=== PATIENT | female | born 1990 | race Caucasian/White ===

== ENCOUNTER 2020-12-08 19:08 | Observation (INO) ==
[2020-12-08] MEDS ORDERED: Naloxone 0.4 MG/ML INJ IVP PRN (21:25)
[2020-12-08] MEDS ORDERED: Melatonin 3 MG TABLET PO PRN (21:25)
[2020-12-08] MEDS ORDERED: Ondansetron 4 MG/2 ML VIAL IVP PRN (21:25)
[2020-12-08 21:30] LABS: Adenovirus Not Detected (Not Detect); Bordetella Pertussis Not Detected (Not Detect); Chlamydophila pneumoniae Not Detected (Not Detect); Coronavirus 229E Not Detected (Not Detect); Coronavirus HKU1 Not Detected (Not Detect); Coronavirus NL63 Not Detected (Not Detect); Coronavirus OC43 Not Detected (Not Detect); Human Metapneumovirus Not Detected (Not Detect); Human Rhinovirus/Enterovirus DETECTED (Not Detect); Influenza A Subtype 2009 H1 Not Detected (Not Detect); Influenza B Not Detected (Not Detect); Mycoplasma pneumoniae Not Detected (Not Detect); Parainfluenza Virus 1 Not Detected (Not Detect); Parainfluenza Virus 2 Not Detected (Not Detect); Parainfluenza Virus 3 Not Detected (Not Detect); Parainfluenza Virus 4 Not Detected (Not Detect); Respiratory Syncytial Virus Not Detected (Not Detect); SARS-CoV-2 Not Detected (Not Detect)
[2020-12-09 01:53] LABS: Basophils % 0.4 %; Eosinophils # 0.2 K/mcL (0.0-0.6); Eosinophils % 1.7 %; Hematocrit 45.1 % (35.3-44.9); Hemoglobin 15.4 g/dL (11.5-15.4); Immature Granulocytes % 0.3 % (0-4); Lymphocytes # 2.7 K/mcL (0.6-4.6); Lymphocytes % 23.9 %; Mean Corpuscular HGB Conc 34.1 g/dL (31.6-35.5); Mean Corpuscular Hemoglobin 29.3 pg (28.0-33.3); Mean Corpuscular Volume 85.9 fL (83.0-100.0); Mean Platelet Volume 12.4 fL (9.4-12.4); Monocytes # 0.9 K/mcL (0.0-1.3); Monocytes % 8.4 %; Neutrophils # 7.3 K/mcL (1.6-8.9); Platelet Count 248 K/mcL (140-400); Red Blood Count 5.25 M/mcL (3.82-4.97); Red Cell Distribution Width 14.2 % (11.5-14.5); Segmented Neutrophils % 65.3 %; White Blood Count 11.1 K/mcL (4.3-11.1)
[2020-12-09 02:13] LABS: Alanine Aminotransferase 27 Units/L (7-52); Albumin/Globulin Ratio 1.4 (1.1-2.2); Alkaline Phosphatase 107 Units/L (34-104); Aspartate Amino Transferase 21 Units/L (13-39); BUN/Creatinine Ratio 14 (6-26); Bilirubin,Total 0.5 mg/dL (0.3-1.0); Blood Urea Nitrogen 10 mg/dL (6-20); Calcium 9.1 mg/dL (8.6-10.3); Carbon Dioxide 24 mEq/L (23-29); Chloride 105 mEq/L (98-107); Globulin 2.8 g/dL (2.4-3.5); Glucose 95 mg/dL (70-105); Magnesium 2.1 mg/dL (1.6-2.6); Osmolality,Calculated 287 (280-300); Potassium 3.5 mEq/L (3.5-5.1); Sodium 139 mEq/L (136-145); Total Protein 6.8 g/dL (6.4-8.9); eGFR For African Americans > 60 (> 60); eGFR For Non-African Americans > 60 (> 60)
[2020-12-09] MEDS ORDERED: *HR* Enoxaparin 40 MG/0.4 ML SYRINGE SQ SCH (06:00)
[2020-12-09] MEDS ORDERED: Nicotine 21 MG PATCH.TD24 TD SCH (09:15)
[2020-12-09 10:26] LABS: Amphetamine Screen,Urine Positive ng/mL (Cutoff=1000); Barbiturate Screen,Urine Negative ng/mL (Cutoff=200); Benzodiazepines Screen,Urine Negative ng/mL (Cutoff=200); Cannabinoid Screen,Urine Negative ng/mL (Cutoff = 50); Cocaine Screen,Urine Negative ng/mL (Cutoff= 300); Opiate Screen,Urine Negative ng/mL (Cutoff=300); Phencyclidine Screen,Urine Negative ng/mL (Cutoff=25)
[2020-12-09 15:33] VITALS: BP 135/92
[2020-12-09] MEDS ORDERED: MOM Conc 10 ML UD.LIQ PO PRN (17:48)
[2020-12-09] MEDS ORDERED: Nicotine 2 MG GUM BC PRN (17:48)
[2020-12-09] MEDS ORDERED: Acetaminophen 325 MG TABLET PO PRN (17:48)
[2020-12-09] MEDS ORDERED: *HR* LORazepam 2 MG/ML VIAL IM PRN (17:48)
[2020-12-09] MEDS ORDERED: Mag Hydrox/Al Hydrox/Simeth 30 ML UDC PO PRN (17:48)
[2020-12-09] MEDS ORDERED: hydrOXYzine pamoate 25 MG CAPSULE PO PRN (17:48)
[2020-12-09] MEDS ORDERED: haloperidoL 5 MG TABLET PO PRN (17:48)
[2020-12-09] MEDS ORDERED: *HR* LORazepam 1 MG TABLET PO PRN (17:48)
[2020-12-09] MEDS ORDERED: Haloperidol Lactate 5 MG/ML VIAL IM PRN (17:48)
[2020-12-09] MEDS ORDERED: QUEtiapine Fumarate 25 MG TABLET PO PRN (17:48)
== END 2020-12-09 17:38 ==
LOC: 3BNU 19:08 → EMEROOARM 19:08 → SUATTDRO 21:55 → 3BNU 22:38
PROVIDERS: ADMIT Internal Medicine; ATTEND Internal Medicine

== ENCOUNTER 2020-12-09 17:22 | Inpatient (IN) ==
[2020-12-09] MEDS ORDERED: *HR* LORazepam 1 MG TABLET PO PRN (18:14)
[2020-12-09] MEDS ORDERED: *HR* LORazepam 2 MG/ML VIAL IM PRN (18:14)
[2020-12-09] MEDS ORDERED: Mag Hydrox/Al Hydrox/Simeth 30 ML UDC PO PRN (18:14)
[2020-12-09] MEDS ORDERED: haloperidoL 5 MG TABLET PO PRN (18:14)
[2020-12-09] MEDS ORDERED: MOM Conc 10 ML UD.LIQ PO PRN (18:14)
[2020-12-09] MEDS ORDERED: Haloperidol Lactate 5 MG/ML VIAL IM PRN (18:14)
[2020-12-10] MEDS: Nicotine 2 MG GUM BC PRN ×7 (00:03→20:28)
[2020-12-10] MEDS: QUEtiapine Fumarate 25 MG TABLET PO PRN ×2 (00:03→20:28)
[2020-12-10] MEDS ORDERED: Nicotine 21 MG PATCH.TD24 TD SCH (09:00)
[2020-12-10] MEDS: hydrOXYzine pamoate 25 MG CAPSULE PO PRN ×2 (10:31→20:28)
[2020-12-10] MEDS: Ibuprofen 600 MG TABLET PO SCH ×3 (12:43→20:27)
[2020-12-11] MEDS: QUEtiapine Fumarate 25 MG TABLET PO PRN ×2 (02:24→21:48)
[2020-12-11] MEDS: hydrOXYzine pamoate 25 MG CAPSULE PO PRN ×3 (08:37→21:48)
[2020-12-11] MEDS: Ibuprofen 600 MG TABLET PO SCH ×3 (08:37→21:48)
[2020-12-11] MEDS: Nicotine 2 MG GUM BC PRN ×3 (09:18→17:45)
[2020-12-12] MEDS: QUEtiapine Fumarate 25 MG TABLET PO PRN (01:16)
[2020-12-12 08:47] VITALS: BP 119/67
[2020-12-12] MEDS: Ibuprofen 600 MG TABLET PO SCH (09:55)
[2020-12-12] MEDS: Nicotine 2 MG GUM BC PRN (09:58)
== END 2020-12-12 11:55 | disposition other institution (70) | DRG 750 ==
LOC: 1ANU 17:22
PROVIDERS: ADMIT Psychiatry & Neurology Forensic Psychiatry; ATTEND Psychiatry & Neurology Forensic Psychiatry

== ENCOUNTER 2020-12-22 02:35 | Inpatient (IN) ==
[2020-12-22] MEDS ORDERED: haloperidoL 5 MG TABLET PO PRN (05:05)
[2020-12-22] MEDS ORDERED: Haloperidol Lactate 5 MG/ML VIAL IM PRN (05:05)
[2020-12-22] MEDS: hydrOXYzine pamoate 25 MG CAPSULE PO PRN ×2 (06:17→18:02)
[2020-12-22] MEDS ORDERED: MOM Conc 10 ML UD.LIQ PO PRN (09:10)
[2020-12-22] MEDS ORDERED: Mag Hydrox/Al Hydrox/Simeth 30 ML UDC PO PRN (09:10)
[2020-12-22] MEDS: Nicotine 2 MG GUM BC PRN ×2 (11:37→16:33)
[2020-12-22] MEDS: Acetaminophen 325 MG TABLET PO PRN (17:23)
[2020-12-23] MEDS: QUEtiapine Fumarate 25 MG TABLET PO PRN ×2 (01:44→21:08)
[2020-12-23] MEDS: Nicotine 2 MG GUM BC PRN ×4 (07:40→18:37)
[2020-12-23] MEDS: hydrOXYzine pamoate 25 MG CAPSULE PO PRN ×3 (09:11→21:08)
[2020-12-23] MEDS ORDERED: *HR* LORazepam 2 MG/ML VIAL IM PRN (09:49)
[2020-12-23] MEDS: cloNIDine HCL 0.1 MG TABLET PO PRN (10:47)
[2020-12-24] MEDS: hydrOXYzine pamoate 25 MG CAPSULE PO PRN ×3 (04:18→19:59)
[2020-12-24] MEDS: Nicotine 2 MG GUM BC PRN ×4 (07:17→20:53)
[2020-12-24] MEDS: cloNIDine HCL 0.1 MG TABLET PO PRN ×2 (08:55→19:58)
[2020-12-24] MEDS: Acetaminophen 325 MG TABLET PO PRN (19:58)
[2020-12-24] MEDS: QUEtiapine Fumarate 25 MG TABLET PO PRN (19:59)
[2020-12-25] MEDS: Nicotine 2 MG GUM BC PRN ×5 (04:01→15:47)
[2020-12-25] MEDS: cloNIDine HCL 0.1 MG TABLET PO PRN ×2 (08:56→17:47)
[2020-12-25] MEDS: hydrOXYzine pamoate 25 MG CAPSULE PO PRN (12:58)
[2020-12-25] MEDS: Acetaminophen 325 MG TABLET PO PRN ×2 (15:47→20:55)
[2020-12-25] MEDS: QUEtiapine Fumarate 25 MG TABLET PO PRN (20:44)
[2020-12-25] MEDS ORDERED: OLANZapine 5 MG TAB.RAPDIS PO SCH (21:00)
[2020-12-26] MEDS: Nicotine 2 MG GUM BC PRN ×5 (02:28→17:56)
[2020-12-26] MEDS: Acetaminophen 325 MG TABLET PO PRN ×4 (02:28→19:43)
[2020-12-26] MEDS: hydrOXYzine pamoate 25 MG CAPSULE PO PRN ×2 (03:55→19:43)
[2020-12-26] MEDS: cloNIDine HCL 0.1 MG TABLET PO PRN (04:24)
[2020-12-26] MEDS: Ibuprofen 400 MG TABLET PO PRN ×2 (13:26→20:40)
[2020-12-26] MEDS: QUEtiapine Fumarate 25 MG TABLET PO PRN (20:38)
[2020-12-26] MEDS ORDERED: OLANZapine 10 MG TAB.RAPDIS PO SCH (21:00)
[2020-12-27] MEDS: Acetaminophen 325 MG TABLET PO PRN ×2 (02:48→08:58)
[2020-12-27] MEDS: Nicotine 2 MG GUM BC PRN ×5 (03:11→17:04)
[2020-12-27 09:36] VITALS: BP 125/87
[2020-12-27] MEDS: hydrOXYzine pamoate 25 MG CAPSULE PO PRN ×2 (12:48→17:03)
[2020-12-27] MEDS: Ibuprofen 400 MG TABLET PO PRN (16:21)
== END 2020-12-27 18:05 | disposition home or self-care (01) | DRG 751 ==
LOC: EMEROOARM 02:35 → 1ANU 04:52
PROVIDERS: ADMIT Psychiatry & Neurology Psychiatry; ATTEND Psychiatry & Neurology Psychiatry

== ENCOUNTER 2021-01-07 22:11 | Inpatient (IN) ==
[2021-01-08 06:12] LABS: Adenovirus Not Detected (Not Detect); Bordetella Pertussis Not Detected (Not Detect); Chlamydophila pneumoniae Not Detected (Not Detect); Coronavirus 229E Not Detected (Not Detect); Coronavirus HKU1 Not Detected (Not Detect); Coronavirus NL63 Not Detected (Not Detect); Coronavirus OC43 Not Detected (Not Detect); Human Metapneumovirus Not Detected (Not Detect); Human Rhinovirus/Enterovirus Not Detected (Not Detect); Influenza A Subtype 2009 H1 Not Detected (Not Detect); Influenza B Not Detected (Not Detect); Mycoplasma pneumoniae Not Detected (Not Detect); Parainfluenza Virus 1 Not Detected (Not Detect); Parainfluenza Virus 2 Not Detected (Not Detect); Parainfluenza Virus 3 Not Detected (Not Detect); Parainfluenza Virus 4 Not Detected (Not Detect); Respiratory Syncytial Virus Not Detected (Not Detect); SARS-CoV-2 Not Detected (Not Detect)
[2021-01-08] MEDS ORDERED: haloperidoL 5 MG TABLET PO PRN (09:38)
[2021-01-08] MEDS ORDERED: *HR* LORazepam 1 MG TABLET PO PRN (09:38)
[2021-01-08] MEDS ORDERED: Mag Hydrox/Al Hydrox/Simeth 30 ML UDC PO PRN (09:38)
[2021-01-08] MEDS ORDERED: Haloperidol Lactate 5 MG/ML VIAL IM PRN (09:38)
[2021-01-08] MEDS ORDERED: MOM Conc 10 ML UD.LIQ PO PRN (09:38)
[2021-01-08] MEDS ORDERED: *HR* LORazepam 2 MG/ML VIAL IM PRN (09:38)
[2021-01-08] MEDS ORDERED: Nicotine 21 MG PATCH.TD24 TD SCH (09:45)
[2021-01-08] MEDS ORDERED: PALIPERIDONE PALMITATE 156 MG/ML IM SCH (12:00)
[2021-01-08] MEDS: Nicotine 2 MG GUM BC PRN ×2 (13:42→17:40)
[2021-01-08] MEDS: QUEtiapine Fumarate 25 MG TABLET PO PRN (20:59)
[2021-01-08] MEDS: hydrOXYzine pamoate 25 MG CAPSULE PO PRN (20:59)
[2021-01-08] MEDS: OLANZapine 5 MG TAB.RAPDIS PO SCH (20:59)
[2021-01-09] MEDS: PARoxetine 20 MG TABLET PO SCH (08:50)
[2021-01-09] MEDS ORDERED: Paliperidone Palmitate 156 MG/ML SYRINGE IM SCH (10:00)
[2021-01-09] MEDS: Nicotine 2 MG GUM BC PRN ×2 (11:39→13:57)
[2021-01-09] MEDS: Acetaminophen 325 MG TABLET PO PRN (12:02)
[2021-01-09] MEDS: OLANZapine 5 MG TAB.RAPDIS PO SCH (20:18)
[2021-01-09] MEDS: hydrOXYzine pamoate 25 MG CAPSULE PO PRN (20:18)
[2021-01-09] MEDS: QUEtiapine Fumarate 25 MG TABLET PO PRN (20:18)
[2021-01-10] MEDS: PARoxetine 20 MG TABLET PO SCH (09:50)
[2021-01-10] MEDS: Nicotine 2 MG GUM BC PRN (09:51)
[2021-01-10] MEDS: hydrOXYzine pamoate 25 MG CAPSULE PO PRN (20:18)
[2021-01-10] MEDS: QUEtiapine Fumarate 25 MG TABLET PO PRN (20:18)
[2021-01-10] MEDS: OLANZapine 5 MG TAB.RAPDIS PO SCH (20:18)
[2021-01-11] MEDS: PARoxetine 20 MG TABLET PO SCH (08:37)
[2021-01-11] MEDS: Acetaminophen 325 MG TABLET PO PRN ×2 (09:20→17:32)
[2021-01-11] MEDS: Nicotine 2 MG GUM BC PRN ×3 (09:37→17:32)
[2021-01-11] MEDS: Ibuprofen 800 MG TABLET PO PRN (14:01)
[2021-01-11] MEDS: hydrOXYzine pamoate 25 MG CAPSULE PO PRN (20:28)
[2021-01-11] MEDS: QUEtiapine Fumarate 25 MG TABLET PO PRN (20:28)
[2021-01-11] MEDS: OLANZapine 10 MG TAB.RAPDIS PO SCH (20:29)
[2021-01-12] MEDS: Nicotine 2 MG GUM BC PRN ×5 (03:00→21:19)
[2021-01-12] MEDS: Acetaminophen 325 MG TABLET PO PRN ×4 (03:01→20:28)
[2021-01-12] MEDS: PARoxetine 20 MG TABLET PO SCH (08:06)
[2021-01-12] MEDS: hydrOXYzine pamoate 25 MG CAPSULE PO PRN ×2 (14:52→20:27)
[2021-01-12] MEDS: Ibuprofen 800 MG TABLET PO PRN (18:41)
[2021-01-12] MEDS: QUEtiapine Fumarate 25 MG TABLET PO PRN (20:27)
[2021-01-12] MEDS: OLANZapine 10 MG TAB.RAPDIS PO SCH (20:28)
[2021-01-13] MEDS: Acetaminophen 325 MG TABLET PO PRN ×4 (02:40→21:03)
[2021-01-13] MEDS: Nicotine 2 MG GUM BC PRN ×3 (02:40→19:50)
[2021-01-13] MEDS: hydrOXYzine pamoate 25 MG CAPSULE PO PRN ×2 (04:27→21:03)
[2021-01-13] MEDS: PARoxetine 20 MG TABLET PO SCH (08:46)
[2021-01-13] MEDS: QUEtiapine Fumarate 25 MG TABLET PO PRN (21:03)
[2021-01-13] MEDS: OLANZapine 10 MG TAB.RAPDIS PO SCH (21:04)
[2021-01-14] MEDS: Nicotine 2 MG GUM BC PRN ×3 (00:36→13:03)
[2021-01-14] MEDS: PARoxetine 20 MG TABLET PO SCH (08:25)
[2021-01-14] MEDS: Acetaminophen 325 MG TABLET PO PRN ×2 (08:25→14:58)
[2021-01-14 09:21] VITALS: BP 136/82
[2021-01-14] MEDS: Ibuprofen 800 MG TABLET PO PRN (13:02)
== END 2021-01-14 15:16 | disposition home or self-care (01) | DRG 817 ==
LOC: EMEROOARM 22:11 → 1ANU 01-08 07:08
PROVIDERS: ADMIT Psychiatry & Neurology Psychiatry; ATTEND Psychiatry & Neurology Psychiatry

== ENCOUNTER 2022-03-17 14:54 | Inpatient (IN) ==
[2022-03-17 15:27] LABS: Bilirubin,Urine Negative (Negative); Blood,Urine Negative (Negative); Clarity,Urine Clear (Clear); Color,Urine Colorless (Yellow); Glucose,Urine (UA) Normal (Normal); Ketones,Urine Negative (Negative); Leukocyte Esterase,Urine Small (Negative); Nitrite,Urine Negative (Negative); PH,Urine 6.5 pH Units (5.0-8.0); Protein,Urine Negative (Neg-Trace); Specific Gravity,Urine < 1.005 (1.010-1.025); Urobilinogen,Urine Normal (Normal); WBC,Urine 0-3 per hpf (0-3)
[2022-03-17] MEDS ORDERED: Pregabalin 50 MG CAPSULE PO ONE ×2 (15:50→21:59)
[2022-03-17 16:36] LABS: Amphetamine Screen,Urine Negative ng/mL (Cutoff=1000); Barbiturate Screen,Urine Negative ng/mL (Cutoff=200); Benzodiazepines Screen,Urine Negative ng/mL (Cutoff=200); Cannabinoid Screen,Urine Negative ng/mL (Cutoff = 50); Cocaine Screen,Urine Negative ng/mL (Cutoff= 300); Opiate Screen,Urine Negative ng/mL (Cutoff=300); Phencyclidine Screen,Urine Negative ng/mL (Cutoff=25)
[2022-03-17] MEDS ORDERED: *HR* LORazepam 2 MG/ML VIAL IM PRN (18:17)
[2022-03-17] MEDS ORDERED: Haloperidol Lactate 5 MG/ML VIAL IM PRN (18:17)
[2022-03-17 19:07] LABS: Influenza A PCR Negative (Negative); Influenza B PCR Negative (Negative); Resp. Syncytial Virus PCR Negative (Negative)
[2022-03-17 19:12] LABS: SARS-CoV-2 by PCR (In House) Negative (Negative)
[2022-03-17] MEDS: hydrOXYzine pamoate 25 MG CAPSULE PO PRN (20:10)
[2022-03-17] MEDS ORDERED: ARIPiprazole 5 MG TABLET PO SCH (22:00)
[2022-03-17] MEDS: Nicotine 2 MG GUM BC PRN (22:11)
[2022-03-18] MEDS: haloperidoL 5 MG TABLET PO PRN ×2 (03:57→15:09)
[2022-03-18] MEDS: *HR* LORazepam 1 MG TABLET PO PRN (03:57)
[2022-03-18] MEDS: hydrOXYzine pamoate 25 MG CAPSULE PO PRN ×3 (08:38→20:33)
[2022-03-18] MEDS: Nicotine 2 MG GUM BC PRN ×3 (08:38→20:15)
[2022-03-18] MEDS ORDERED: Nicotine 14 MG PATCH.TD24 TD SCH (09:00)
[2022-03-18] MEDS ORDERED: Mag Hydrox/Al Hydrox/Simeth 30 ML UDC PO PRN (09:33)
[2022-03-18] MEDS ORDERED: MOM Conc 10 ML UD.LIQ PO PRN (09:33)
[2022-03-18 10:37] LABS: Basophils % 0.4 %; Eosinophils # 0.2 K/mcL (0.0-0.6); Hematocrit 44.3 % (35.3-44.9); Immature Granulocytes % 0.2 % (0-4); Lymphocytes # 1.8 K/mcL (0.6-4.6); Lymphocytes % 21.5 %; Mean Corpuscular HGB Conc 33.9 g/dL (31.6-35.5); Mean Corpuscular Hemoglobin 30.9 pg (28.0-33.3); Mean Corpuscular Volume 91.2 fL (83.0-100.0); Mean Platelet Volume 12.1 fL (9.4-12.4); Monocytes # 0.5 K/mcL (0.0-1.3); Monocytes % 6.2 %; Neutrophils # 5.9 K/mcL (1.6-8.9); Platelet Count 200 K/mcL (140-400); Red Blood Count 4.86 M/mcL (3.82-4.97); Red Cell Distribution Width 13.5 % (11.5-14.5); Segmented Neutrophils % 69.7 %; White Blood Count 8.4 K/mcL (4.3-11.1)
[2022-03-18 11:08] LABS: Alanine Aminotransferase 23 Units/L (7-52); Albumin 4.4 g/dL (3.5-5.7); Albumin/Globulin Ratio 1.6 (1.1-2.2); Alkaline Phosphatase 64 Units/L (34-104); Aspartate Amino Transferase 18 Units/L (13-39); BUN/Creatinine Ratio 13 (6-26); Bilirubin,Total 1.1 mg/dL (0.3-1.0); Blood Urea Nitrogen 9 mg/dL (6-20); Calcium 9.7 mg/dL (8.6-10.3); Carbon Dioxide 27 mEq/L (23-29); Chloride 106 mEq/L (98-107); Chol/HDL Ratio 4.3 (0-4.9); Cholesterol 132 mg/dL (< 200); Globulin 2.8 g/dL (2.4-3.5); Glucose 91 mg/dL (70-105); HDL Cholesterol 31 mg/dL (40-59); LDL Cholesterol,Calculated 81 mg/dL (< 100); Osmolality,Calculated 284 (280-300); Potassium 4.2 mEq/L (3.5-5.1); Sodium 138 mEq/L (136-145); Total Protein 7.2 g/dL (6.4-8.9); Triglycerides 102 mg/dL (< 150)
[2022-03-18 11:15] LABS: Thyroid Stimulating Hormone 0.946 mcIU/mL (0.340-5.600)
[2022-03-18 11:41] LABS: Estimated Average Glucose 97 mg/dl
[2022-03-18] MEDS: Acetaminophen 325 MG TABLET PO PRN (11:44)
[2022-03-18] MEDS: Vitamin B Complex/Vit C/Vit E 1 EACH TABLET PO SCH (11:44)
[2022-03-18] MEDS: QUEtiapine Fumarate 25 MG TABLET PO PRN ×2 (20:33→23:30)
[2022-03-18] MEDS: Pregabalin 50 MG CAPSULE PO SCH (20:33)
[2022-03-18] MEDS ORDERED: ARIPiprazole 5 MG TABLET PO SCH (21:00)
[2022-03-19] MEDS: *HR* LORazepam 1 MG TABLET PO PRN (02:04)
[2022-03-19] MEDS: haloperidoL 5 MG TABLET PO PRN ×2 (02:04→12:35)
[2022-03-19] MEDS: Vitamin B Complex/Vit C/Vit E 1 EACH TABLET PO SCH (08:28)
[2022-03-19] MEDS: Levothyroxine 25 MCG TABLET PO SCH (08:28)
[2022-03-19] MEDS: Pregabalin 50 MG CAPSULE PO SCH ×2 (08:28→20:04)
[2022-03-19] MEDS: Nicotine 2 MG GUM BC PRN ×3 (08:30→20:03)
[2022-03-19] MEDS: hydrOXYzine pamoate 25 MG CAPSULE PO PRN (10:03)
[2022-03-19] MEDS ORDERED: ARIPiprazole 400 MG SUSER.SYR IM SCH (12:00)
[2022-03-19] MEDS: Acetaminophen 325 MG TABLET PO PRN (14:08)
[2022-03-19] MEDS: QUEtiapine Fumarate 25 MG TABLET PO PRN (20:04)
[2022-03-19] MEDS ORDERED: ARIPiprazole 5 MG TABLET PO SCH (21:00)
[2022-03-20] MEDS: Nicotine 2 MG GUM BC PRN ×4 (03:44→20:03)
[2022-03-20] MEDS: Levothyroxine 25 MCG TABLET PO SCH (06:48)
[2022-03-20] MEDS: Pregabalin 50 MG CAPSULE PO SCH ×2 (07:43→20:02)
[2022-03-20] MEDS: Vitamin B Complex/Vit C/Vit E 1 EACH TABLET PO SCH (07:44)
[2022-03-20] MEDS: haloperidoL 5 MG TABLET PO PRN ×2 (07:44→15:12)
[2022-03-20] MEDS: hydrOXYzine pamoate 25 MG CAPSULE PO PRN (07:44)
[2022-03-20] MEDS: RisperiDONE-M 1 MG TAB.RAPDIS PO PRN (11:20)
[2022-03-20] MEDS: Acetaminophen 325 MG TABLET PO PRN (15:54)
[2022-03-20] MEDS: Nitrofurantoin (BID) 100 MG CAPSULE PO SCH (15:54)
[2022-03-20] MEDS ORDERED: ARIPiprazole 5 MG TABLET PO SCH ×2 (21:00)
[2022-03-20] MEDS: ARIPiprazole 10 MG TABLET PO SCH (21:34)
[2022-03-20] MEDS: QUEtiapine Fumarate 25 MG TABLET PO PRN (21:36)
[2022-03-21] MEDS: haloperidoL 5 MG TABLET PO PRN ×3 (02:45→15:25)
[2022-03-21] MEDS: Levothyroxine 25 MCG TABLET PO SCH (06:45)
[2022-03-21] MEDS: Nitrofurantoin (BID) 100 MG CAPSULE PO SCH ×2 (06:45→17:19)
[2022-03-21] MEDS: Nicotine 2 MG GUM BC PRN ×5 (06:45→20:02)
[2022-03-21] MEDS: hydrOXYzine pamoate 25 MG CAPSULE PO PRN ×3 (06:50→14:47)
[2022-03-21] MEDS: Pregabalin 50 MG CAPSULE PO SCH ×2 (09:23→20:12)
[2022-03-21] MEDS: Vitamin B Complex/Vit C/Vit E 1 EACH TABLET PO SCH (09:23)
[2022-03-21] MEDS: RisperiDONE-M 1 MG TAB.RAPDIS PO PRN (12:43)
[2022-03-21] MEDS: Acetaminophen 325 MG TABLET PO PRN (14:13)
[2022-03-21] MEDS: *HR* LORazepam 1 MG TABLET PO PRN (15:27)
[2022-03-21] MEDS: ARIPiprazole 10 MG TABLET PO SCH (20:12)
[2022-03-21] MEDS: QUEtiapine Fumarate 25 MG TABLET PO PRN (20:13)
[2022-03-22] MEDS: Nitrofurantoin (BID) 100 MG CAPSULE PO SCH ×2 (06:48→17:37)
[2022-03-22] MEDS: Nicotine 2 MG GUM BC PRN ×5 (06:48→21:15)
[2022-03-22] MEDS: Levothyroxine 25 MCG TABLET PO SCH (06:48)
[2022-03-22] MEDS: haloperidoL 5 MG TABLET PO PRN ×3 (06:58→19:07)
[2022-03-22] MEDS: Vitamin B Complex/Vit C/Vit E 1 EACH TABLET PO SCH (07:35)
[2022-03-22] MEDS: Pregabalin 50 MG CAPSULE PO SCH ×2 (07:35→20:42)
[2022-03-22] MEDS: RisperiDONE-M 1 MG TAB.RAPDIS PO PRN ×2 (08:43→15:36)
[2022-03-22] MEDS: BuPROPion XL (24 HR) 150 MG TABLET PO SCH (10:13)
[2022-03-22] MEDS: hydrOXYzine pamoate 25 MG CAPSULE PO PRN (11:42)
[2022-03-22] MEDS: QUEtiapine Fumarate 25 MG TABLET PO PRN (20:42)
[2022-03-22] MEDS: ARIPiprazole 10 MG TABLET PO SCH (20:42)
[2022-03-23] MEDS: Nicotine 2 MG GUM BC PRN ×5 (03:30→21:22)
[2022-03-23] MEDS: hydrOXYzine pamoate 25 MG CAPSULE PO PRN ×2 (03:30→19:41)
[2022-03-23] MEDS: Vitamin B Complex/Vit C/Vit E 1 EACH TABLET PO SCH (08:21)
[2022-03-23] MEDS: Levothyroxine 25 MCG TABLET PO SCH (08:21)
[2022-03-23] MEDS: Nitrofurantoin (BID) 100 MG CAPSULE PO SCH ×2 (08:21→17:07)
[2022-03-23] MEDS: Pregabalin 50 MG CAPSULE PO SCH ×2 (08:21→20:23)
[2022-03-23] MEDS: BuPROPion XL (24 HR) 150 MG TABLET PO SCH (08:21)
[2022-03-23] MEDS: *HR* LORazepam 1 MG TABLET PO PRN (09:47)
[2022-03-23] MEDS: haloperidoL 5 MG TABLET PO PRN (09:47)
[2022-03-23] MEDS ORDERED: BuPROPion XL (24 HR) 150 MG TABLET PO ONE (11:49)
[2022-03-23] MEDS: RisperiDONE-M 1 MG TAB.RAPDIS PO PRN ×2 (14:46→20:42)
[2022-03-23] MEDS: Acetaminophen 325 MG TABLET PO PRN (17:11)
[2022-03-23] MEDS: ARIPiprazole 10 MG TABLET PO SCH (20:22)
[2022-03-23] MEDS: QUEtiapine Fumarate 25 MG TABLET PO PRN (20:23)
[2022-03-24] MEDS: Nicotine 2 MG GUM BC PRN ×4 (01:06→11:06)
[2022-03-24] MEDS: haloperidoL 5 MG TABLET PO PRN ×2 (01:06→17:45)
[2022-03-24] MEDS: *HR* LORazepam 1 MG TABLET PO PRN (01:58)
[2022-03-24] MEDS: Nitrofurantoin (BID) 100 MG CAPSULE PO SCH ×2 (07:01→16:54)
[2022-03-24] MEDS: Levothyroxine 25 MCG TABLET PO SCH (07:01)
[2022-03-24] MEDS: Vitamin B Complex/Vit C/Vit E 1 EACH TABLET PO SCH (08:32)
[2022-03-24] MEDS: Pregabalin 50 MG CAPSULE PO SCH ×2 (08:32→20:03)
[2022-03-24] MEDS: BuPROPion XL (24 HR) 150 MG TABLET PO SCH (08:33)
[2022-03-24] MEDS ORDERED: OLANZapine 5 MG TAB.RAPDIS PO PRN (10:21)
[2022-03-24] MEDS ORDERED: Baclofen 10 MG TABLET PO ONE (11:07)
[2022-03-24] MEDS: Nicotine 21 MG PATCH.TD24 TD SCH (14:02)
[2022-03-24] MEDS: Baclofen 10 MG TABLET PO SCH ×2 (14:53→20:03)
[2022-03-24] MEDS: hydrOXYzine pamoate 25 MG CAPSULE PO PRN (17:45)
[2022-03-24] MEDS: ARIPiprazole 10 MG TABLET PO SCH (20:02)
[2022-03-24] MEDS: QUEtiapine Fumarate 25 MG TABLET PO PRN (20:03)
[2022-03-24 20:50] VITALS: O2SAT 98
[2022-03-25] MEDS: hydrOXYzine pamoate 25 MG CAPSULE PO PRN (03:49)
[2022-03-25] MEDS: Levothyroxine 25 MCG TABLET PO SCH (07:09)
[2022-03-25] MEDS: Nitrofurantoin (BID) 100 MG CAPSULE PO SCH (08:02)
[2022-03-25] MEDS: Pregabalin 50 MG CAPSULE PO SCH (08:03)
[2022-03-25] MEDS: Baclofen 10 MG TABLET PO SCH (08:03)
[2022-03-25] MEDS: Nicotine 21 MG PATCH.TD24 TD SCH (08:03)
[2022-03-25] MEDS: Vitamin B Complex/Vit C/Vit E 1 EACH TABLET PO SCH (08:03)
[2022-03-25] MEDS: BuPROPion XL (24 HR) 150 MG TABLET PO SCH (08:03)
[2022-03-25 08:52] VITALS: BP 114/75; PULSE 73; TEMP 97.2
[2022-03-25] MEDS ORDERED: Nicotine 21 MG PATCH.TD24 TD SCH (09:00)
== END 2022-03-25 11:40 | disposition other institution (70) | DRG 750 ==
LOC: EMEROOARM 14:54 → 1ANU 20:32
PROVIDERS: ADMIT Psychiatry & Neurology Psychiatry; ATTEND Psychiatry & Neurology Psychiatry